=== PATIENT | male | born 2000 | race Caucasian/White ===

== ENCOUNTER → 2023-01-11 09:15 | Outpatient (BNVA) | payer OTHER, MEDICAID, SELFPAY | PROVIDERS: Family Provider Family Medicine; PCP Family Medicine; Visit Provider Nurse Practitioner Family | DX: S99.912A Unspecified injury of left ankle, initial encounter (principal); W19.XXXA Unspecified fall, initial encounter | CPT/HCPCS: 73610 ==

== ENCOUNTER → 2023-03-28 15:21 | Outpatient (BNVA) | payer OTHER, MEDICAID, SELFPAY | PROVIDERS: Family Provider Family Medicine; PCP Family Medicine; Visit Provider Family Medicine | DX: R73.03 Prediabetes (principal); Z68.39 Body mass index [BMI] 39.0-39.9, adult | CPT/HCPCS: 80053; 83036; 85025 ==